=== PATIENT | female | born 1980 | race Hispanic/Latino ===

== ENCOUNTER 2017-02-14 05:31 | Inpatient (IN) ==
--- NOTE | 2017-02-13 21:10 | HISTORY AND PHYSICAL ---
HISTORY OF PRESENT ILLNESS: Patient is a 36-year-old G2, P1-0-0-1 with intrauterine at 39 weeks and 1 day. complications significant for prior x1. Desires sterility. The patient presents for repeat section. Risks, benefits, alternatives discussed with the patient and she desires to proceed. PAST MEDICAL HISTORY: None. PAST SURGICAL HISTORY: C section. 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 OB HISTORY: Term x1. SOCIAL HISTORY: No tobacco use. PHYSICAL EXAM: VITAL SIGNS: Patient afebrile, vital signs stable. GENERAL: Patient in no acute distress. LUNGS: Respirations nonlabored. HEART: No peripheral vascular abnormalities noted. ABDOMEN: Soft, gravid, nontender to palpation. EXAM: Cervix closed. ASSESSMENT AND PLAN: 36-year-old, G2, P1 with intrauterine at 39 weeks and 1 day. Will proceed to the operating room for repeat section and bilateral tubal ligation. cc: Bernie Damon MD
[2017-02-14] MEDS ORDERED: LR 1,000 ML IV SCH (05:35)
[2017-02-14] MEDS ORDERED: KEFZOL 1 GM/D5W 1 GM/50 ML IVPB IV PRN (05:35)
[2017-02-14] MEDS ORDERED: REGLAN IV ONE (05:45)
[2017-02-14] MEDS ORDERED: BICITRA PO ONE (05:45)
[2017-02-14] MEDS ORDERED: SODIUM CHLORIDE 0.9% INJ ONE (05:51)
[2017-02-14] MEDS ORDERED: PEPCID IV ONE (05:51)
[2017-02-14 06:28] LABS: URINE SOURCE VOIDED
[2017-02-14 06:31] LABS: MANUAL DIFF NEEDED? NO
[2017-02-14 06:33] LABS: BASO% 0.1 % (0.0-0.8); EOS# 0.04 X1000 (0.0-0.7); EOS% 0.4 % (0.0-10.0); HEMATOCRIT 37.2 % (37.0-47.0); HEMOGLOBIN 12.2 g/dL (12.0-16.0); IMM GRAN# 0.01 X1000 (0.0-0.04); IMM GRAN% 0.1 % (0.0-0.5); LYMPH# 1.89 X1000 (1.2-3.4); LYMPH% 21.2 % (20.5-51.1); MCH 25.8 PG (27-31); MCHC 32.8 g/dL (33-37); MCV 78.6 FL (81-99); MONO# 0.49 X1000 (0.11-0.59); MONO% 5.5 % (1.7-9.3); MPV 8.3 FL (7.4-10.4); NEUT% 72.7 % (42.2-75.2); PLT 331 X1000 (130-400); RBC 4.73 XMIL (4.2-5.4)
[2017-02-14] MEDS ORDERED: BENADRYL ONE (06:37)
[2017-02-14] MEDS ORDERED: TORADOL ONE (06:37)
[2017-02-14 06:38] LABS: BILIRUBIN URINE NEGATIVE (NEGATIVE); BLOOD URINE TRACE (NEGATIVE); CLARITY CLEAR (CLEAR); COLOR YELLOW; GLUCOSE URINE NEGATIVE (NEGATIVE); LEUKOCYTES URINE TRACE (NEGATIVE); NITRITE URINE NEGATIVE (NEGATIVE); PROTEIN URINE NEGATIVE (NEGATIVE); UROBILINOGEN URINE NORMAL
[2017-02-14] MEDS ORDERED: PITOCIN ONE (06:38)
[2017-02-14] MEDS ORDERED: FENTANYL ONE (06:38)
[2017-02-14] MEDS ORDERED: PITOCIN 20 UNITS/LR 20 UNITS/1,000 ML IV.SOLN ONE ×2 (06:38→09:43)
[2017-02-14] MEDS ORDERED: ZOFRAN ONE (06:38)
[2017-02-14] MEDS ORDERED: DURAMORPH ONE (06:38)
[2017-02-14] MEDS ORDERED: HEMABATE ONE (06:39)
[2017-02-14] MEDS ORDERED: METHERGINE ONE (06:39)
[2017-02-14] MEDS ORDERED: HYDROXYZINE PO PRN (08:27)
[2017-02-14] MEDS ORDERED: AMBIEN PO PRN (08:27)
[2017-02-14] MEDS ORDERED: DEMEROL IM PRN (08:27)
[2017-02-14] MEDS ORDERED: PHENERGAN IM PRN (08:27)
[2017-02-14] MEDS ORDERED: CYTOTEC PO PRN (08:27)
[2017-02-14] MEDS ORDERED: M-M-R II VACCINE SUBQ ONE (08:27)
[2017-02-14] MEDS ORDERED: DULCOLAX PR PRN (08:27)
[2017-02-14] MEDS ORDERED: BOOSTRIX VACCINE IM ONE (08:27)
[2017-02-14] MEDS ORDERED: HYDROXYZINE IM PRN (08:27)
[2017-02-14] MEDS ORDERED: PITOCIN 20 UNITS/LR 20 UNITS/1,000 ML IV.SOLN IV ONE (08:27)
[2017-02-14] MEDS ORDERED: MYLICON PO PRN (08:27)
[2017-02-14] MEDS ORDERED: NORCO-5 PO PRN ×2 (08:27→09:00)
[2017-02-14] MEDS ORDERED: DEMEROL PO PRN ×2 (08:27)
[2017-02-14] MEDS ORDERED: PITOCIN IM PRN (08:27)
[2017-02-14] MEDS ORDERED: PITOCIN 10 UNITS/LR 10 UNIT/1,000 ML IV.SOLN IV SCH (08:30)
[2017-02-14] MEDS ORDERED: NEO-SYNEPHRINE ONE (08:54)
[2017-02-14] MEDS ORDERED: PHENERGAN ONE (08:56)
[2017-02-14] MEDS ORDERED: ZOFRAN ODT PO PRN (08:59)
[2017-02-14] MEDS ORDERED: BENADRYL IV PRN (08:59)
[2017-02-14] MEDS ORDERED: NARCAN INJ PRN (08:59)
[2017-02-14] MEDS ORDERED: ZOFRAN IV PRN ×2 (08:59)
[2017-02-14] MEDS ORDERED: NORCO-10 PO PRN (09:00)
--- NOTE | 2017-02-14 09:43 | OPERATIVE NOTE ---
PROCEDURE DATE: 02/14/2017 PREOPERATIVE DIAGNOSES: 1. Intrauterine at 39 weeks 1 day. 2. Prior section. 3. Desires sterility. POSTOPERATIVE DIAGNOSES: 1. Intrauterine at 39 weeks 1 day. 2. Prior section. 3. Desires sterility. PROCEDURES PERFORMED: Repeat low segment transverse section with bilateral fimbriectomy. SURGEON: Bernie Damon MD RECORD CUTTER: Irma. ESTIMATED BLOOD LOSS: 500 mL. ANESTHESIA: Spinal. COMPLICATIONS: None. COUNTS: Correct x2. FINDINGS: Viable female , weighing 7 pounds 2 ounces. Grossly normal- appearing uterus. Right ovary with a 1 cm nodule, otherwise grossly normal bilateral tubes and ovaries. INDICATIONS FOR PROCEDURE: This patient is a 36-year-old, 2, para 1-0-0 -1, with intrauterine at 39 weeks 3 days with prior section. Risks, benefits, and alternatives were discussed with the patient and she desires to proceed to the operating room for repeat section and bilateral tubal ligation. PROCEDURE IN DETAIL: After proper informed consent was obtained, the patient was taken to the operating room and placed in dorsal supine position with adequate spinal anesthesia. The abdomen was prepped and draped in normal sterile fashion for abdominal surgery. After a proper time-out was performed, a transverse incision was made on the skin over prior scar, this was carried down to the underlying fascia which was scored in the midline. The fascial incision was extended laterally and cephalad using Ayala scissors. The inferior aspect of the fascial defect was grasped with Stalin clamps and dissected off the underlying rectus abdominis muscles. Similar was carried out to the superior aspect of the fascial defect. The muscles were bluntly in the midline. The peritoneum was entered bluntly and stretched with the run boat operator's hand. A bladder blade was placed to protect the bladder. A low transverse incision was made on the uterus. A vacuum-assisted delivery was attempted with 2 popoffs. The infant was subsequently delivered in vertex presentation. The cord was doubly clamped and cut, and infant was handed off to the awaiting pediatric staff. The placenta was delivered via fundal massage. The uterus was exteriorized and cleared free of all clot and debris. The hysterotomy was reapproximated using #1 chromic in a running, locking fashion. An additional [id number] suture was placed for added hemostasis. Attention was then turned to bilateral tubal ligation. The right tube was grasped with a [place] clamp and carried out to the fimbria. The fimbria was then double suture ligated and transected with good hemostasis noted. Similar was carried out to the left fallopian tube. The posterior cul-de-sac was cleared free of all clot and debris. The uterus was returned to the abdomen. Hysterotomy was again reinspected and noted to be hemostatic. The abdomen was copiously irrigated. The peritoneum was then reapproximated using 3-0 chromic in a running, continuous fashion. The muscles were noted to be hemostatic. The fascia was then reapproximated using # 1 PDS in a running, continuous fashion. The subcutaneous tissue was reapproximated using 3 -0 chromic in a running, continuous fashion. The skin was reapproximated using 4-0 Monocryl in subcuticular fashion. The patient tolerated the procedure well and was transferred to recovery in stable condition. cc: Bernie Damon MD MTDD
[2017-02-14] MEDS: MYLICON PO SCH ×2 (13:46→20:18)
[2017-02-14] MEDS: TORADOL IV SCH ×2 (14:20→20:19)
[2017-02-14] MEDS: PERICOLACE PO SCH (20:18)
[2017-02-15 06:32] LABS: HEMATOCRIT 33.9 % (37.0-47.0); HEMOGLOBIN 10.8 g/dL (12.0-16.0); MCH 25.8 PG (27-31); MCHC 31.9 g/dL (33-37); MCV 80.9 FL (81-99); MPV 8.3 FL (7.4-10.4); RBC 4.19 XMIL (4.2-5.4)
[2017-02-15] MEDS: MOTRIN PO PRN ×2 (08:03→16:50)
[2017-02-15] MEDS ORDERED: LR 1,000 ML IV SCH (08:27)
[2017-02-15] MEDS: MYLICON PO SCH ×5 (09:33→21:36)
[2017-02-15] MEDS: PERICOLACE PO SCH (21:35)
[2017-02-15] MEDS: NORCO-10 PO PRN (22:35)
[2017-02-16] MEDS: MYLICON PO SCH ×4 (08:38→21:41)
[2017-02-16] MEDS: NORCO-10 PO PRN ×3 (08:41→21:41)
[2017-02-16] MEDS: MOTRIN PO PRN ×2 (08:41→16:35)
--- NOTE | 2017-02-16 15:32 | PROGRESS NOTE ---
DATE: 02/16/2017 SUBJECTIVE: She is postop and day 2. Ms. Pathak communicates no complaints. States she is doing well, just not ready to go home at this point. But, states she is ambulating, voiding, and tolerating p.o. OBJECTIVE: Vital signs: Stable. She is afebrile. General: She is alert and cooperative. Appears to be in mild distress but is able to rest comfortably. Physical examination within normal limits. Neck: Supple. Lungs: Clear. Heart: Regular sinus rhythm. Abdomen: Soft. Incision is dry and intact. Extremities: There is +2 lower extremity edema. ASSESSMENT: Postoperative day, day 2. PLAN: Routine care. Except discharge in the morning. Her hemoglobin is 10.8 from yesterday's blood draw. cc: MD Bernie Brush MD
[2017-02-16] MEDS: PERICOLACE PO SCH (21:41)
[2017-02-17] MEDS: NORCO-10 PO PRN (03:47)
[2017-02-17] MEDS: MOTRIN PO PRN ×2 (03:47→12:20)
[2017-02-17] MEDS: MYLICON PO SCH ×2 (08:44→12:57)
[2017-02-17 12:14] VITALS: BP 135/91
--- NOTE | 2017-02-18 09:24 | DISCHARGE SUMMARY ---
ADMISSION DATE: 02/14/2017 DISCHARGE DATE: 02/17/2017 PREOPERATIVE DIAGNOSIS: History of section with desire for repeat. PRINCIPLE PROCEDURE: Repeat low transverse section. HOSPITAL COURSE: Patient was admitted on 02/14/2017 for scheduled repeat low transverse section. Procedure was performed without complications. The patient subsequently transferred to mother and baby. Her postoperative course has remained stable. The patient has minimal pain that is controlled with p.o. medications. Her lochia is less than menses. She is ambulating without assistance. The patient has no nausea or vomiting, on a regular p.o. diet. CONDITION ON DISCHARGE: Stable. ELIMINATION CAPACITY: Independent. FEEDING CAPACITY: Independent. LOCOMOTION CAPACITY: Independent. REHAB POTENTIAL: Good. PROGNOSIS: Good. DISCHARGE MEDICATIONS: [place] 5 mg 1-2 tabs p.o. q.6 hours p.r.n. pain. DIET: The patient has maintained a regular diet. PHYSICAL ACTIVITY: As tolerated. DISCHARGE INSTRUCTIONS: The patient is to maintain pelvic rest x6 weeks. The patient is ordered to call or return if fever greater than 100.4, heavy vaginal bleeding, foul smelling vaginal discharge, or any other acute changes. She is to be discharged home with orders to follow up with Dr. Stock in 2 weeks for an incision check. cc: MD Bernie Babin MD
== END 2017-02-17 14:55 | disposition home or self-care (01) ==
LOC: P.LD 05:31 → P.WC 11:51
PROVIDERS: ADMIT Obstetrics & Gynecology; ATTEND Obstetrics & Gynecology